=== PATIENT | male | born 1980 | race Caucasian/White ===

== ENCOUNTER 2017-05-22 08:45 | Emergency (ER) | payer SELFPAY ==
[~2017-05-22] VITALS: Ht 182.9 cm; Wt 90.0 kg
[2017-05-22 08:48] VITALS: BP 137/95; PULSE 95; RESP 12; TEMP 97.7
[2017-05-22] MEDS ORDERED: LORazepam 2 MG/ML VIAL IV ONE (09:00)
[2017-05-22] MEDS ORDERED: SODIUM CHLOR 0.9% 1000 ML INJ 1,000 ML IV ONE ×3 (09:00)
--- NOTE | 2017-05-22 09:00 | PD ---
HPI Chief Complaint: Alcohol/Drug Intoxication Time Seen by Provider: 09:00 Travel History International Travel<30 days: No Contact w/Intl Traveler<30days: No Traveled to known affect area: No History of Present Illness HPI 37-year-old male came to the emergency room brought by EMS after having a bad reaction to the drugs he did this morning. Patient does cocaine, heroin and meth. This morning he did some heroin and he thinks there was something in it that made him feel this way. He feels jittery and shaky. Patient also told the nurse that he hasn't drank much in past 4 days. He does look dehydrated and anxious. Patient is tachycardic upon arrival. He is alert and answering questions appropriately however. No history of any suicidal ideations. [facility] Past Medical History Narrative Medical List of his past medical, surgical, social and family history is reviewed from the nursing note. ?: Not Social History Tobacco Use: Yes Allergies-Medications (Allergen,Severity, Reaction): Coded Allergies: No Known Allergies (Unverified , 05/22/17) Comments No known drug allergies Reported Meds & Prescriptions Reported Meds & Active Scripts Active No Active Prescriptions or Reported Medications Narrative Medication List of his home medications reviewed from the nursing note. Review of Systems Except as stated in HPI: all other systems reviewed are Neg Physical Exam Narrative GENERAL: Awake, alert, anxious, mild distress SKIN: Focused skin assessment warm/dry. HEAD: Atraumatic. Normocephalic. EYES: Pupils equal and round. No scleral icterus. No injection or drainage. ENT: No nasal bleeding or discharge. Dry mucous membranes, coated tongue NECK: Trachea midline. No JVD. CARDIOVASCULAR: Regular rate and rhythm. No murmur appreciated. RESPIRATORY: No accessory muscle use. Clear to auscultation. Breath sounds equal bilaterally. GASTROINTESTINAL: Abdomen soft, non-tender, nondistended. Hepatic and splenic margins not palpable. MUSCULOSKELETAL: No obvious deformities. No clubbing. No cyanosis. No edema. NEUROLOGICAL: Awake and alert. No obvious cranial nerve deficits. Motor grossly within normal limits. Normal speech. PSYCHIATRIC: Appropriate mood and affect; insight and judgment normal. Data Data Last Documented VS Vital Signs Date Time Temp Pulse Resp B/P Pulse Ox O2 Delivery O2 Flow Rate FiO2 05/22/17 11:42 77 20 178/95 99 Room Air 05/22/17 08:48 97.7 Orders Complete Blood Count With Diff (05/22/17 09:00) Comprehensive Metabolic Panel (05/22/17 09:00) Electrocardiogram (05/22/17 09:00) Lorazepam Inj (Ativan Inj) (05/22/17 09:00) Drug Screen, Random Urine (05/22/17 09:00) Alcohol (Ethanol) (05/22/17 09:00) Sodium Chlor 0.9% 1000 Ml Inj (Ns 1000 M (05/22/17 09:00) Sodium Chlor 0.9% 1000 Ml Inj (Ns 1000 M (05/22/17 09:00) Sodium Chlor 0.9% 1000 Ml Inj (Ns 1000 M (05/22/17 09:00) Labs Laboratory Tests Test 05/22/17 05/22/17 09:15 10:45 White Blood Count 11.1 TH/MM3 Red Blood Count 5.76 MIL/MM3 Hemoglobin 16.8 GM/DL Hematocrit 47.5 % Mean Corpuscular Volume 82.4 FL Mean Corpuscular Hemoglobin 29.1 PG Mean Corpuscular Hemoglobin 35.4 % Concent Red Cell Distribution Width 12.7 % Platelet Count 280 TH/MM3 Mean Platelet Volume 8.0 FL Neutrophils (%) (Auto) 73.2 % Lymphocytes (%) (Auto) 14.0 % Monocytes (%) (Auto) 12.0 % Eosinophils (%) (Auto) 0.2 % Basophils (%) (Auto) 0.6 % Neutrophils # (Auto) 8.1 TH/MM3 Lymphocytes # (Auto) 1.6 TH/MM3 Monocytes # (Auto) 1.3 TH/MM3 Eosinophils # (Auto) 0.0 TH/MM3 Basophils # (Auto) 0.1 TH/MM3 CBC Comment DIFF FINAL Differential Comment Sodium Level 135 MEQ/L Potassium Level 3.5 MEQ/L Chloride Level 102 MEQ/L Carbon Dioxide Level 22.3 MEQ/L Anion Gap 11 MEQ/L Blood Urea Nitrogen 26 MG/DL Creatinine 1.31 MG/DL Estimat Glomerular Filtration 61 ML/MIN Rate Random Glucose 114 MG/DL Calcium Level 9.2 MG/DL Total Bilirubin 1.5 MG/DL Aspartate Amino Transf 46 U/L (AST/SGOT) Alanine Aminotransferase 58 U/L (ALT/SGPT) Alkaline Phosphatase 71 U/L Total Protein 8.6 GM/DL Albumin 4.5 GM/DL Ethyl Alcohol Level LESS THAN 3 MG/DL Urine Opiates Screen NEG Urine Barbiturates Screen NEG Urine Amphetamines Screen POS Urine Benzodiazepines Screen NEG Urine Cocaine Screen NEG Urine Cannabinoids Screen NEG MDM Medical Decision Making Medical Screen Exam Complete: Yes Emergency Medical Condition: Yes Medical Record Reviewed: Yes Interpretation(s) Twelve-lead EKG was reviewed by me. Normal sinus rhythm, normal axis, nonspecific ST-T wave changes. Heart rate of 83 bpm. Differential Diagnosis Polysubstance abuse, polysubstance binge, and dehydration, elect light abnormalities Narrative Course 11:11 AM patient was given 3 L of IV fluid bolus anticipating his severe dehydration. I gave him 1 mg of IV Ativan as well. I just went back to do reassess him and he says he feels better. He seems less jittery and more focused. I have explained to him that the hospital does not to detox and he should try to go to [facility] to look for detox. He understands and he says he will do that. Patient will be given something to drink and eat and he' ll be discharged home. Critical Care Narrative Aggregate critical care time was 45 minutes. Time to perform other separately billable procedures was not included in the critical care time. My time did not include minutes spent treating any other patients simultaneously or on activities that did not directly contribute to the patient's treatment. The services I provided to this patient were to treat and/or prevent clinically significant deterioration that could result in: Severe dehydration, polysubstance abuse, fluid resuscitation with 3 L of bolus I provided critical care services requiring my management, as noted below: Chart data review, documentation time, medication orders and management, vital sign assessments/reviewing monitor data, ordering and reviewing lab tests, ordering and interpreting/reviewing x-rays and diagnostic studies, care of the patient and discussion of the patient with the admitting physicians. Procedures EKG Prior to Arrival: No Diagnosis Primary Impression: Polysubstance abuse Additional Impression: Dehydration Referrals: Primary Care Physician Additional Instructions: Please go to [facility] to be checked in for detox and rehabilitation 3- year-old polysubstance abuse. You must keep yourself hydrated and stay out of the warm temperature. Return to the ER if the condition worsens or any other new concerns. Med/Other Pt SpecificInfo: No Change to Meds Scripts No Active Prescriptions or Reported Meds Disposition: 01 DISCHARGE HOME Condition: Hector Cm MD May 22, 2017 09:00
[2017-05-22 09:29] LABS: AUTOMATED NEUTROPHIL # 8.1 TH/MM3 (1.8-7.7); BASOPHIL # 0.1 TH/MM3 (0-0.2); BASOPHIL % 0.6 % (0.0-2.0); EOSINOPHIL % 0.2 % (0.0-4.0); HEMATOCRIT 47.5 % (39.0-51.0); HEMO FLAGS DIFF FINAL; LYMPHOCYTE # 1.6 TH/MM3 (1.0-4.8); MEAN CELL VOLUME 82.4 FL (80.0-100.0); MEAN CORPUSCULAR HEMOGLOBIN 29.1 PG (27.0-34.0); MEAN CORPUSCULAR HGB CONC 35.4 % (32.0-36.0); NEUT % 73.2 % (16.0-70.0); PLATELET COUNT 280 TH/MM3 (150-450); RED BLOOD COUNT 5.76 MIL/MM3 (4.50-5.90); RED CELL DISTRIBUTION WIDTH 12.7 % (11.6-17.2); WHITE BLOOD COUNT 11.1 TH/MM3 (4.0-11.0)
[2017-05-22 09:47] LABS: ANION GAP 11 MEQ/L (5-15); AST (GOT) 46 U/L (15-37); BICARBONATE 22.3 MEQ/L (21.0-32.0); BLOOD UREA NITROGEN 26 MG/DL (7-18); CHLORIDE 102 MEQ/L (98-107); GLOMERULAR FILTRATION RATE 61 ML/MIN (>89); POTASSIUM 3.5 MEQ/L (3.5-5.1); SODIUM (NA) 135 MEQ/L (136-145)
[2017-05-22 09:48] LABS: ALT (GPT) 58 U/L (12-78)
[2017-05-22 09:49] LABS: ALCOHOL LESS THAN 3 MG/DL (0-5)
[2017-05-22 09:51] LABS: ALKALINE PHOSPHATASE 71 U/L (45-117); TOTAL BILIRUBIN ADULT 1.5 MG/DL (0.2-1.0)
[2017-05-22 11:42] VITALS: BP 178/95; PULSE 77; RESP 20; O2SAT 99
--- NOTE | 2017-05-22 13:48 | EKG ---
Date Performed: 05/22/2017 Time Performed: 08:58:59 PTAGE: 37 years EKG: Sinus rhythm NORMAL ECG NO PREVIOUS TRACING DOCTOR: Pavel Tinoco Interpretating Date/Time 05/22/2017 13:47:30
== END 2017-05-22 13:19 | disposition home or self-care (01) ==
LOC: NEPE 08:45
DX: F19.10 Other psychoactive substance abuse, uncomplicated (principal); E86.0 Dehydration
CPT/HCPCS: 80053; 80307; 85025; 93005; 96374; 99284; J2060; J7030

== ENCOUNTER 2017-12-07 14:50 | Emergency (ER) | payer SELFPAY ==
[~2017-12-07] VITALS: Ht 177.8 cm; Wt 90.0 kg
[2017-12-07] MEDS ORDERED: LORazepam 1 MG TAB PO ONE (16:15)
--- NOTE | 2017-12-07 16:15 | PD ---
HPI Chief Complaint: Psychiatric Symptoms Time Seen by Provider: 16:08 Travel History International Travel<30 days: No Contact w/Intl Traveler<30days: No History of Present Illness HPI 37-year-old male presents emergency department voluntarily with suicidal ideation. Patient states he has been clean for 18 months but then did some amphetamines today. He denies any medical problems. He is suicidal due to with the fact that he used after being clean for 18 months. He has no known drug allergies. PFSH Past Medical History Diminished Hearing: No Social History Alcohol Use: No Tobacco Use: Yes Substance Use: Yes (meth, crack, cocaine) Allergies-Medications (Allergen,Severity, Reaction): Coded Allergies: No Known Allergies (Unverified , 05/22/17) Reported Meds & Prescriptions Reported Meds & Active Scripts Active No Active Prescriptions or Reported Medications Review of Systems Except as stated in HPI: all other systems reviewed are Neg General / Constitutional: No: Fever Eyes: No: Visual changes HENT: No: Headaches Cardiovascular: No: Chest Pain or Discomfort Respiratory: No: Shortness of Breath Gastrointestinal: No: Abdominal Pain Genitourinary: No: Dysuria Musculoskeletal: No: Pain Skin: No Rash Neurologic: No: Weakness Psychiatric: Positive: Depression, Suicidal Ideations, Substance Abuse, No: Homicidal Ideation Endocrine: No: Polydipsia Hematologic/Lymphatic: No: Easy Bruising Physical Exam Narrative GENERAL: Patient appears somewhat anxious otherwise no acute distress SKIN: Warm and dry. Normal color. Normal turgor HEAD: Atraumatic. Normocephalic. EYES: Pupils equal and round. No scleral icterus. No injection or drainage. ENT: No nasal bleeding or discharge. Mucous membranes pink and moist. Pharynx is clear. NECK: Trachea midline. Supple. CARDIOVASCULAR: Regular rate and rhythm. RESPIRATORY: No accessory muscle use. Clear to auscultation. Breath sounds equal bilaterally. GASTROINTESTINAL: Abdomen soft, non-tender, nondistended. Hepatic and splenic margins not palpable. MUSCULOSKELETAL: Extremities without clubbing, cyanosis, or edema. No obvious deformities. NEUROLOGICAL: Awake and alert. No obvious cranial nerve deficits. Motor grossly within normal limits. Five out of 5 muscle strength in the arms and legs. Normal speech. PSYCHIATRIC: Appropriate mood and affect; insight and judgment normal. Data Data Orders Orders Diet Regular Basic (12/07/17 Dinner) Complete Blood Count With Diff (12/07/17 16:08) Comprehensive Metabolic Panel (12/07/17 16:08) Thyroid Stimulating Hormone (12/07/17 16:08) Psych Screen (12/07/17 16:08) Drug Screen, Random Urine (12/07/17 16:08) Alcohol (Ethanol) (12/07/17 16:08) Lorazepam (Ativan) (12/07/17 16:15) Diphenhydramine Inj (Benadryl Inj) (12/07/17 17:23) Ziprasidone Inj (Geodon Inj) (12/07/17 17:23) Labs Laboratory Tests Test 12/07/17 16:21 White Blood Count 12.3 TH/MM3 Red Blood Count 5.75 MIL/MM3 Hemoglobin 16.9 GM/DL Hematocrit 47.9 % Mean Corpuscular Volume 83.2 FL Mean Corpuscular Hemoglobin 29.3 PG Mean Corpuscular Hemoglobin Concent 35.2 % Red Cell Distribution Width 12.9 % Platelet Count 291 TH/MM3 Mean Platelet Volume 7.7 FL Neutrophils (%) (Auto) 83.7 % Lymphocytes (%) (Auto) 7.2 % Monocytes (%) (Auto) 8.9 % Eosinophils (%) (Auto) 0.0 % Basophils (%) (Auto) 0.2 % Neutrophils # (Auto) 10.3 TH/MM3 Lymphocytes # (Auto) 0.9 TH/MM3 Monocytes # (Auto) 1.1 TH/MM3 Eosinophils # (Auto) 0.0 TH/MM3 Basophils # (Auto) 0.0 TH/MM3 CBC Comment DIFF FINAL Differential Comment Blood Urea Nitrogen 15 MG/DL Creatinine 1.44 MG/DL Random Glucose 158 MG/DL Total Protein 8.8 GM/DL Albumin 4.7 GM/DL Calcium Level 9.4 MG/DL Alkaline Phosphatase 74 U/L Aspartate Amino Transf (AST/SGOT) 22 U/L Alanine Aminotransferase (ALT/SGPT) 38 U/L Total Bilirubin 0.8 MG/DL Sodium Level 136 MEQ/L Potassium Level 3.7 MEQ/L Chloride Level 102 MEQ/L Carbon Dioxide Level 25.5 MEQ/L Anion Gap 9 MEQ/L Estimat Glomerular Filtration Rate 55 ML/MIN Thyroid Stimulating Hormone 3rd Gen 1.330 uIU/ML Ethyl Alcohol Level LESS THAN 3 MG/DL MDM Medical Decision Making Medical Screen Exam Complete: Yes Emergency Medical Condition: Yes Differential Diagnosis Suicidal ideation. Substance abuse. Depression. Narrative Course Patient is medically stable at time of exam. Psychiatric labs ordered per protocol. Patient is given 2 mg lorazepam p.o. Patient is medically clear for psychiatric evaluation. Scripts No Active Prescriptions or Reported Meds Condition: Stable Jovany Motley Dec 07, 2017 16:15
[2017-12-07 16:51] LABS: AUTOMATED NEUTROPHIL # 10.3 TH/MM3 (1.8-7.7); BASOPHIL % 0.2 % (0.0-2.0); HEMATOCRIT 47.9 % (39.0-51.0); HEMOGLOBIN 16.9 GM/DL (13.0-17.0); LYMPH % 7.2 % (9.0-44.0); LYMPHOCYTE # 0.9 TH/MM3 (1.0-4.8); MEAN CELL VOLUME 83.2 FL (80.0-100.0); MEAN CORPUSCULAR HEMOGLOBIN 29.3 PG (27.0-34.0); MEAN CORPUSCULAR HGB CONC 35.2 % (32.0-36.0); MEAN PLATELET VOLUME 7.7 FL (7.0-11.0); MONO % 8.9 % (0.0-8.0); MONOCYTE # 1.1 TH/MM3 (0-0.9); NEUT % 83.7 % (16.0-70.0); PLATELET COUNT 291 TH/MM3 (150-450); RED BLOOD COUNT 5.75 MIL/MM3 (4.50-5.90); RED CELL DISTRIBUTION WIDTH 12.9 % (11.6-17.2); WHITE BLOOD COUNT 12.3 TH/MM3 (4.0-11.0)
[2017-12-07 17:00] VITALS: RESP 18
[2017-12-07 17:07] LABS: ALBUMIN 4.7 GM/DL (3.4-5.0); AST (GOT) 22 U/L (15-37); BICARBONATE 25.5 MEQ/L (21.0-32.0); BLOOD UREA NITROGEN 15 MG/DL (7-18); CALCIUM 9.4 MG/DL (8.5-10.1); CHLORIDE 102 MEQ/L (98-107); CREATININE 1.44 MG/DL (0.60-1.30); GLOMERULAR FILTRATION RATE 55 ML/MIN (>89); GLUCOSE,RANDOM 158 MG/DL (74-106); SODIUM (NA) 136 MEQ/L (136-145)
[2017-12-07 17:08] LABS: ALT (GPT) 38 U/L (12-78)
[2017-12-07 17:18] LABS: ALKALINE PHOSPHATASE 74 U/L (45-117); TOTAL BILIRUBIN ADULT 0.8 MG/DL (0.2-1.0); TOTAL PROTEIN 8.8 GM/DL (6.4-8.2)
[2017-12-07] MEDS ORDERED: diphenhydrAMINE HCL 50 MG/ML VIAL ONE (17:23)
[2017-12-07] MEDS ORDERED: ZIPRASIDONE MESYLATE 20 MG VIAL IM ONE ×2 (17:23→18:30)
--- NOTE | 2017-12-07 17:33 | PD ---
History of Present Illness Chief Complaint: Psychiatric Symptoms Time Seen by Provider: 17:20 Travel History International Travel<30 Days: No Contact w/Intl Traveler<30days: No History of Present Illness: History of Present Illness HPI This serves as initial note and face to face evaluation for restraints. 37-year-old male presents emergency department voluntarily with suicidal ideation. Patient states he has been clean for 18 months but then did some amphetamines today. He denies any medical problems. He is suicidal due to with the fact that he used after being clean for 18 months. He has no known drug allergies. Patient is becoming more agitated. He believes that we are going thru his phone and are calling his girlfriend telling her that he has been cheating on her. He comes out of his room and states " see you are calling her. I can hear you. Does not accept verbal redirection and escalates with loud tone of voice. He is informed that staff does not use his phone to call anyone and he continues to escalate in threatening manner. Requires ETO as well as restraints due to threats of harm towards staff. Unable to obtain any other clinical information at this due to current mental status and his level of agitation. PFSH Past Medical History Diminished Hearing: No Psychiatric History Psychiatric History Hx Psychiatric Treatment: unable to obtain Social History unable to obtain Hx Alcohol Use: No Hx Tobacco Use: Yes Hx Substance Use: Yes (meth, crack, cocaine) Family Psychiatric History unable to obtain Allergies-Medications (Allergen,Severity, Reaction): Coded Allergies: No Known Allergies (Unverified Allergy, Unknown, 12/07/17) Reported Meds & Prescriptions Reported Meds & Active Scripts Active No Active Prescriptions or Reported Medications Review of Systems ROS Limitations: Uncooperative, Psychotic Mental Status Examination Appearance: Appropriate Consciousness: Alert Motor Activity: Normal gait Speech: Other (loud and threatening) Language: Adequate Attention and Concentration: Easily Distracted Memory: Unremarkable (unable to evaluate) Mood: Angry, Other (agitated) Affect: Irritable Thought Process & Associations: Other Thought Content: Hallucinations Delusion Type: Paranoid MDM Medical Decision Making Medical Record Reviewed: Yes Assessment/Plan 37-year-old male with history of substance abuse and unknown psychiatric history who presents to the ED initially on a voluntary status who after he was brought back to [facility] for further evaluation became agitated and threatening to staff. He is accusing staff of going through his telephone and calling his girlfriend to tell her that he has been unfaithful. Patient accuses several staff member of doing so. He required ETO as well as restraints for safety. The patient is placed under Stevens act at this time. He will need to be evaluated in the morning for disposition. Orders Orders Diet Regular Basic (12/07/17 Dinner) Complete Blood Count With Diff (12/07/17 16:08) Comprehensive Metabolic Panel (12/07/17 16:08) Thyroid Stimulating Hormone (12/07/17 16:08) Psych Screen (12/07/17 16:08) Drug Screen, Random Urine (12/07/17 16:08) Alcohol (Ethanol) (12/07/17 16:08) Lorazepam (Ativan) (12/07/17 16:15) Diphenhydramine Inj (Benadryl Inj) (12/07/17 17:23) Ziprasidone Inj (Geodon Inj) (12/07/17 17:23) Results Laboratory Tests Test 12/07/17 16:21 White Blood Count 12.3 Red Blood Count 5.75 Hemoglobin 16.9 Hematocrit 47.9 Mean Corpuscular Volume 83.2 Mean Corpuscular Hemoglobin 29.3 Mean Corpuscular Hemoglobin Concent 35.2 Red Cell Distribution Width 12.9 Platelet Count 291 Mean Platelet Volume 7.7 Neutrophils (%) (Auto) 83.7 Lymphocytes (%) (Auto) 7.2 Monocytes (%) (Auto) 8.9 Eosinophils (%) (Auto) 0.0 Basophils (%) (Auto) 0.2 Neutrophils # (Auto) 10.3 Lymphocytes # (Auto) 0.9 Monocytes # (Auto) 1.1 Eosinophils # (Auto) 0.0 Basophils # (Auto) 0.0 CBC Comment DIFF FINAL Differential Comment Blood Urea Nitrogen 15 Creatinine 1.44 Random Glucose 158 Total Protein 8.8 Albumin 4.7 Calcium Level 9.4 Alkaline Phosphatase 74 Aspartate Amino Transf (AST/SGOT) 22 Alanine Aminotransferase (ALT/SGPT) 38 Total Bilirubin 0.8 Sodium Level 136 Potassium Level 3.7 Chloride Level 102 Carbon Dioxide Level 25.5 Anion Gap 9 Estimat Glomerular Filtration Rate 55 Thyroid Stimulating Hormone 3rd Gen 1.330 Ethyl Alcohol Level LESS THAN 3 Diagnosis Primary Impression: Substance-induced psychotic disorder Prescriptions No Active Prescriptions or Reported Meds Condition: Stable Frances Montes Dec 07, 2017 17:33
[2017-12-07] MEDS ORDERED: diphenhydrAMINE HCL 50 MG/ML VIAL IM ONE (18:30)
[2017-12-07 18:50] VITALS: BP 137/88; PULSE 102; RESP 20; TEMP 98.6; O2SAT 95
[2017-12-08] MEDS ORDERED: ZIPRASIDONE MESYLATE 20 MG VIAL IM ONE (00:30)
[2017-12-08 06:00] VITALS: BP 150/89; PULSE 89; RESP 17; TEMP 98.7; O2SAT 99
--- NOTE | 2017-12-08 08:57 | PD ---
Physical Exam Date Seen by Provider: Dec 08, 2017 Time Seen by Provider: 08:56 Narrative 37-year-old male previously medically cleared for psychiatric evaluation, has been seen by psychiatric staff and deemed psychiatrically stable for discharge at this time. Patient remains medically stable at this time. Follow-up will be based on psychiatric note. Data Data Last Documented VS Vital Signs Date Time Temp Pulse Resp B/P (MAP) Pulse Ox O2 Delivery O2 Flow Rate FiO2 12/08/17 06:00 98.7 89 17 150/89 (109) 99 Room Air Orders Orders Diet Regular Basic (12/07/17 Dinner) Complete Blood Count With Diff (12/07/17 16:08) Comprehensive Metabolic Panel (12/07/17 16:08) Thyroid Stimulating Hormone (12/07/17 16:08) Psych Screen (12/07/17 16:08) Drug Screen, Random Urine (12/07/17 16:08) Alcohol (Ethanol) (12/07/17 16:08) Lorazepam (Ativan) (12/07/17 16:15) Diphenhydramine Inj (Benadryl Inj) (12/07/17 17:23) Ziprasidone Inj (Geodon Inj) (12/07/17 17:23) Restraints Violent (12/07/17 17:20) Ziprasidone Inj (Geodon Inj) (12/07/17 18:30) Diphenhydramine Inj (Benadryl Inj) (12/07/17 18:30) Ziprasidone Inj (Geodon Inj) (12/08/17 00:30) Diet Regular Basic (12/08/17 Breakfast) Labs Laboratory Tests Test 12/07/17 16:21 12/07/17 20:15 White Blood Count 12.3 TH/MM3 Red Blood Count 5.75 MIL/MM3 Hemoglobin 16.9 GM/DL Hematocrit 47.9 % Mean Corpuscular Volume 83.2 FL Mean Corpuscular Hemoglobin 29.3 PG Mean Corpuscular Hemoglobin Concent 35.2 % Red Cell Distribution Width 12.9 % Platelet Count 291 TH/MM3 Mean Platelet Volume 7.7 FL Neutrophils (%) (Auto) 83.7 % Lymphocytes (%) (Auto) 7.2 % Monocytes (%) (Auto) 8.9 % Eosinophils (%) (Auto) 0.0 % Basophils (%) (Auto) 0.2 % Neutrophils # (Auto) 10.3 TH/MM3 Lymphocytes # (Auto) 0.9 TH/MM3 Monocytes # (Auto) 1.1 TH/MM3 Eosinophils # (Auto) 0.0 TH/MM3 Basophils # (Auto) 0.0 TH/MM3 CBC Comment DIFF FINAL Differential Comment Blood Urea Nitrogen 15 MG/DL Creatinine 1.44 MG/DL Random Glucose 158 MG/DL Total Protein 8.8 GM/DL Albumin 4.7 GM/DL Calcium Level 9.4 MG/DL Alkaline Phosphatase 74 U/L Aspartate Amino Transf (AST/SGOT) 22 U/L Alanine Aminotransferase (ALT/SGPT) 38 U/L Total Bilirubin 0.8 MG/DL Sodium Level 136 MEQ/L Potassium Level 3.7 MEQ/L Chloride Level 102 MEQ/L Carbon Dioxide Level 25.5 MEQ/L Anion Gap 9 MEQ/L Estimat Glomerular Filtration Rate 55 ML/MIN Thyroid Stimulating Hormone 3rd Gen 1.330 uIU/ML Ethyl Alcohol Level LESS THAN 3 MG/DL Urine Opiates Screen NEG Urine Barbiturates Screen NEG Urine Amphetamines Screen POS Urine Benzodiazepines Screen NEG Urine Cocaine Screen POS Urine Cannabinoids Screen NEG MDM Medical Record Reviewed: Yes Supervised Visit with JULISSA: Yes Narrative Course 37-year-old male previously medically cleared for psychiatric evaluation, has been seen by psychiatric staff and deemed psychiatrically stable for discharge at this time. Patient remains medically stable at this time. Follow-up will be based on psychiatric note. Diagnosis Primary Impression: Substance-induced psychotic disorder Patient Instructions: General Instructions Scripts No Active Prescriptions or Reported Meds Disposition: 01 DISCHARGE HOME Condition: Stable Jovany Motley Dec 08, 2017 08:57
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
== END 2017-12-08 09:20 | disposition home or self-care (01) ==
LOC: NEPJ 14:50
DX: F19.159 Other psychoactive substance abuse with psychoactive substance-induced psychotic disorder, unspecified (principal); Z72.0 Tobacco use
CPT/HCPCS: 80053; 80307; 84443; 85025; 96372; 99285; J3486; J1200